=== PATIENT | male | born 1985 | race Caucasian/White ===

== ENCOUNTER 2023-12-26 12:25 | Emergency (ER) | payer OTHER, SELFPAY ==
[2023-12-26 12:27] VITALS: BP 144/94
--- NOTE | 2023-12-26 12:34 | ED.PDOC.TRB ---
ED Provider Triage
-
Patient seen by provider in Triage?: Seen in Triage
38-year-old otherwise healthy male presents
[2023-12-26 12:57] LABS: COVID-19 Antigen Positive (Negative)
--- NOTE | 2023-12-26 13:19 | ED.GENMED ---
History of Present Illness
General
Chief Complaint: Fever
Time Seen by Provider: 12/26/23 13:16
History of Present Illness
History of Present Illness:
38-year-old male presents the emergency department for evaluation of fever, cough, general malaise and fatigue for the past 2 days. He is concerned that driving with the windows open caused him to become sick. No ill contacts. Denies shortness of
breath. Has been taking Tylenol and ibuprofen with only minimal fever control
Review of Systems
Review of Systems
Allergies reviewed?: Yes
All Other Systems: ROS reviewed and negative except as documented in HPI and ROS
Phy Exam
Physical Exam
Physical Exam:
GEN: Well appearing, NAD, WDWN
HEENT: Oral mucosa moist, no scleral icterus
Cardiac: Regular rate and rhythm, no murmurs
Lung: No respiratory distress, no tachypnea, lungs clear to auscultation
MSK: No gross deformity or injuries
Skin: Good color, no pallor or jaundice, no rashes
Neuro: AO x3, moves all extremities freely
Psych: Calm, cooperative
Sepsis
Sepsis Screening
Sepsis Assessment: Sepsis Ruled Out
Sepsis Screen
Sepsis Screen: Sepsis Ruled Out
Date: 12/26/23
Time: 17:45
Course
Orders/Labs/Results
Orders:
Orders
12/26/23 12:33
COVID-19 Antigen Urgent
Source: Nasal Swab
Influenza A+B Rapid Molecular Urgent
DEEP Source: Nasal Swab
Specimen Description:
CR Chest - 2 Views Urgent
Comment:
Reason For Exam: fever, cough
Abnormal Lab Results
12/26/23
12:33
SARS-CoV-2 Antigen Positive A
(Negative)
Vital Signs
Initial and Last Documented VS:
Initial Vital Signs
Temp Pulse Resp BP Pulse Ox
100.9 F H 105 20 144/94 97
12/26/23 12:27 12/26/23 12:27 12/26/23 12:27 12/26/23 12:27 12/26/23 12:27
Last Documented Vital Signs
Temp Pulse Resp BP Pulse Ox
100.9 F H 105 20 144/94 97
12/26/23 12:27 12/26/23 12:27 12/26/23 12:27 12/26/23 12:27 12/26/23 12:27
MDM/Problems Addressed
MDM/Problems Addressed:
Patient is positive for COVID-19, negative for influenza, chest x-ray independently interpreted by myself is negative for acute disease. Clinically well-appearing. No high risk features suggesting need for antiviral therapy. Discussed supportive
care
*Critical Care Note
Total Time (30-74mins, 75-104mins- exclusive of procedures): Not Applicable
ED Attending Note
-
Portions of this chart may have been created with voice recognition software.� Occasional wrong word or��sound alike� substitutions may have occurred due to the inherent limitations of voice recognition software.
Discharge Plan
Departure
Patient Disposition: Home (Routine Discharge)
Date of Disposition: 12/26/23
Time of Disposition: 13:19
Patient with high blood pressure during this ER visit?: No
Discharge Problem:
COVID-19
Instructions: COVID-19 ED
Interventions
Interventions:
*Risk Screen - Suicide Last Done: 12/26/23 12:27
*General Assessment Last Done: 12/26/23 12:27
*Neglect/Abuse Screening Last Done: 12/26/23 12:27
*Nursing Disposition Last Done: 12/26/23 13:52
ED- Neurological Assessment Last Done: 12/26/23 13:30
ED-Skin Assessment Last Done: 12/26/23 13:30
Discharge Date and Time
Discharge Date/Time: 12/26/23 13:45
Print Language: CANADIAN
== END 2023-12-26 13:45 | disposition home or self-care (01) ==
LOC: EMR 12:25
PROVIDERS: Physician Assistant; EMERGENCY PHYSICIAN Emergency Medicine
DX: U07.1 COVID-19 (principal); Z11.52 Encounter for screening for COVID-19
CPT/HCPCS: 99283; 71046; 87502; 87811